=== PATIENT | male | born 1995 | race Caucasian/White ===

== ENCOUNTER 2016-10-20 19:01 | Emergency (ER) | payer OTHER ==
[2016-10-20] MEDS ORDERED: HYDROmorphONE/DILAUDID 1 MG/ML SYR IVP ONE ×2 (19:14→20:40)
[2016-10-20] MEDS ORDERED: IOPAMIDOL (ISOVUE-300) 100 ML BTL ONE (19:15)
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
[2016-10-20 19:26] LABS: % IMMATURE GRANULYOCYTES 0.9 % (0.0-1.1); ADD DIFF? NO; ADD MORPH? NO; ADD SCAN? NO; ATYPICAL LYMPHOCYTE FLAG 0 (0-99); FRAGMENT RBC FLAG 0 (0-99); HEMATOCRIT 48.2 % (40.0-51.0); HEMOGLOBIN 16.5 g/dL (13.7-17.5); LEFT SHIFT FLG 10 (0-99); LIPEMIA HEMOLYSIS FLAG 90 (0-99); MEAN CELL HEMOGLOBIN 28.3 pg (27.9-34.1); MEAN CELL HEMOGLOBIN CONCENTR. 34.2 g/dL (32.4-36.7); MEAN CELL VOLUME 82.5 fL (81.5-99.8); MEAN PLATELET VOLUME 10.6 fL (8.7-11.7); PLATELET CLUMPS FLAG 10 (0-99); PLATELET COUNT 259 10^3/uL (150-400); RED BLOOD CELL COUNT 5.84 10^6/uL (4.40-6.38); RED CELL DISTRIBUTION WIDTH 13.2 % (11.5-15.2)
[2016-10-20 19:35] LABS: INR 1.11 (0.83-1.16); PROTIME(PATIENT) 14.2 SEC (12.0-15.0)
[2016-10-20 19:36] LABS: APTT 28.4 SEC (23.0-38.0)
[2016-10-20 19:38] LABS: ANION GAP 15 mEq/L (8-16); CALCIUM 9.9 mg/dL (8.5-10.4); CARBON DIOXIDE 20 mEq/l (22-31); CHLORIDE 107 mEq/L (97-110); GLOMERULAR FILTRATION RATE > 60; GLUCOSE 73 mg/dL (70-100); POTASSIUM 4.7 mEq/L (3.5-5.2); SODIUM 142 mEq/L (134-144)
[2016-10-20 19:59] VITALS: RESP 20; TEMP 98.2
[2016-10-20] MEDS ORDERED: TDAP ADULT 0.5 ML INJ (BOOSTRIX) IM ONE (20:05)
[2016-10-20] MEDS ORDERED: LET GEL TOPICAL 1 EA SYR TP ONE (20:05)
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
[2016-10-20] MEDS ORDERED: HYDROCOD/APAP 5/325 PREPACK#6 BTL TAKEHOME ONE (20:57)
[2016-10-20 22:57] VITALS: BP 132/80; PULSE 98; O2SAT 97
== END 2016-10-20 22:56 | disposition home or self-care (01) ==
DX: S42.022A Displaced fracture of shaft of left clavicle, initial encounter for closed fracture (principal); S50.312A Abrasion of left elbow, initial encounter; S40.812A Abrasion of left upper arm, initial encounter; S40.811A Abrasion of right upper arm, initial encounter; V18.0XXA Pedal cycle driver injured in noncollision transport accident in nontraffic accident, initial encounter; Y92.89 Other specified places as the place of occurrence of the external cause; Y93.55 Activity, bike riding
CPT/HCPCS: 96374; A4565; J1170; Q9967